=== PATIENT | female | born 1985 | race Two or more races ===

== ENCOUNTER 2016-11-21 07:13 | Inpatient (IN) ==
[2016-11-21] MEDS ORDERED: CITRIC ACID/SODIUM CITRATE 30 ML UDCUP PO ONE (07:39)
[2016-11-21] MEDS ORDERED: LACTATED RINGERS 1,000 ML IV ONE (07:39)
[2016-11-21] MEDS ORDERED: FAMOTIDINE 20 MG/2 ML VIAL IV ONE (07:39)
--- NOTE | 2016-11-21 07:42 | History and Physical Update ---
History and Physical Update - History and Physical H&P was reviewed, the patient examined and there: are no changes in the patients condition since last H&P was completed. - Dictation Physical: refer to scanned H&P - Physical Exam Mental Status: alert and oriented Heart: regular rate and rhythm Lung: clear to auscultation Abdomen: within normal limits Vitals: within normal limits (39 wks for primary LTCS, low-lying placenta. No other complications. )
[2016-11-21 07:53] LABS: Basophils % 0.3 % (0.0-0.8); Eosinophils # 0.1 10*3/uL (0.0-0.87); Eosinophils % 0.9 % (0.00-10.9); Hematocrit 33.8 VOL% (35.7-47.0); Immature Granulocytes % 0.6 %; Immature Granulocytes Absolute 0.05 #; Lymphocytes # 2.1 10*3/uL (1.4-4.0); Lymphocytes % 22.8 % (21.3-54.2); Mean Corpuscular HGB Conc 32.5 GM/DL (32-36); Mean Corpuscular Hemoglobin 26 PG (27-34); Mean Corpuscular Volume 78.2 FL (87-102); Mean Platelet Volume 11.2 FL (9.6-12.0); Monocytes # 0.6 10*3/uL (0.11-0.8); Monocytes % 7.1 % (1.7-12.7); Neutrophils # 6.2 10*3/uL (1.4-7.4); Neutrophils % 68.3 % (38.7-73.9); Platelet Count 279 T/CUMM (130-400); Red Blood Count 4.32 MC/CUMM (3.8-5.5); Red Cell Distribution Width 16.2 % (9.3-17.3)
[2016-11-21 08:27] LABS: Alanine Aminotransferase 20 U/L (13-56); Albumin 2.6 G/DL (3.4-5.0); Alkaline Phosphatase 353 U/L (45-117); Aspartate Amino Transferase 41 U/L (0-37); Bilirubin,Total < 0.39 MG/DL (0.2-1.0); Blood Urea Nitrogen 9 MG/DL (7-18); Calcium 8.5 MG/DL (8.5-10.1); Total Protein 6.5 G/DL (6.4-8.3)
[2016-11-21 08:28] LABS: Glucose 83 MG/DL (74-106); Osmolality,Calculated 270.8 MOS/KG (273-304); Potassium 3.8 MMOL/L (3.5-5.1); Sodium 137 MMOL/L (136-145)
[2016-11-21] MEDS: LACTATED RINGERS 1,000 ML IV SCH ×2 (09:00→21:00)
[2016-11-21] MEDS ORDERED: OXYTOCIN/LR 20 UNIT/1,000 ML BAG IV ONE ×2 (09:40→11:19)
[2016-11-21] MEDS ORDERED: ONDANSETRON 4 MG/2 ML VIAL ONE (10:08)
[2016-11-21 11:17] LABS: Apearance,Urine CLEAR (Clear); Bilirubin,Urine Negative (Negative); Blood, Urine Negative (Negative); Glucose,Urine (UA) Negative (Negative); Ketones,Urine 5 mg/dL (Negative); Nitrite,Urine Negative (Negative); Protein,Urine Negative; RBC,Urine 1 /HPF (0-4); Urine Color Colorless (Yellow); Urine Specific Gravity 1.003 (1.001-1.035); Urine Urobilinogen < 2.0 EU/DL (0.2-1.0); WBC,Urine <1 /HPF (0-6)
[2016-11-21] MEDS ORDERED: ONDANSETRON 4 MG/2 ML VIAL IV PRN (11:19)
[2016-11-21] MEDS ORDERED: RHO(D) IMMUNE GLOBULIN 300 MCG SYRINGE IM ONE (11:19)
[2016-11-21] MEDS ORDERED: ACETAMINOPHEN 325 MG TABLET PO PRN (11:19)
--- NOTE | 2016-11-21 11:23 | Operative Note ---
Date of procedure: 11/21/16 Pre-op diagnosis: 1.39wks; 2. low-lying placenta Post-op diagnosis: same Procedure: Primary low transverse section After informed consent was obtained the patient was taken to the labor and delivery OR where she was placed in supine position with left lateral tilt after administration of the subarachnoid block by members of the anesthesia department. The patient was then sterilely prepped and draped in the usual customary fashion. A Calixto catheter was placed to bedside drainage. After assuring adequacy of the subarachnoid block a low transverse skin incision was made. Incision was carried through the subcutaneous tissue and Gloria's fascia to the anterior rectus fascia. Rectus muscles are bifurcated in the midline. Peritoneum was carefully entered. A bladder flap was created. The bladder blade was place in the bladder flap. A low transverse myotomy incision was then performed. Uterine cavity was entered with careful dissection. The was found in the cephalic presentation and delivered by the usual cephalic delivery technique without difficulty. The baby was bulb suctioned on the operative field. The cord was doubly clamped and cut. The was handed to personnel in attendance. Cord blood was collected. The placenta was manually extracted and sent to pathology for evaluation. The uterus is brought out of the abdominal cavity onto the abdominal wall. Uterine cavity was gently curetted with a moistened lap sponge. The cervix was noted to be dilated. Myotomy incision was repaired with a running interlocking stitch of 0 chromic suture from left to right and from right to left. After assuring adequate myotomy closure the adnexa were inspected and found to be without evidence pathology. The abdominal gutters were irrigated with normal saline. Uterus was carefully replaced into the abdominal cavity. The myometrium incision was again inspected. It was found to be hemostatic. Peritoneum was closed with a running stitch of 3-0 Vicryl. Rectus muscles were noted be hemostatic. The fascia was closed in running fashion from left right and from right to left with 0 Vicryl suture. The sutures tied securely at the midline. Adequate fascial closure was assured. Gloria's fascia was reapproximated with a running stitch of 3-0 Vicryl. Skin edges were reapproximated with surgical surgical steel shyam. The wound was sterilely cleansed and dressed in the usual and customary fashion. Patient tolerated the procedure well and was transferred to recovery in stable condition. Anesthesia: spinal Surgeon / Physician: Lindy Fox Estimated blood loss: other (500cc) Specimens: other (placenta to path; cord blood to lab) Condition: stable Disposition: no change Results - Labs CBC & BMP: 11/21/16 07:46 11/21/16 07:46 Discharge Plan - Discharge Medications No Action Vit No.124/Iron/Folic [ Vitamin Tablet] 1 tablet PO DAILY MDD one tab - Follow Up or Referral - Forms/Instructions
[2016-11-21] MEDS ORDERED: LACTATED RINGERS 1,000 ML IV SCH (11:30)
[2016-11-21] MEDS ORDERED: ePHEDrine 50 MG/ML AMP ONE (11:34)
[2016-11-21] MEDS ORDERED: MORPHINE 10 MG/10 ML VIAL ONE (11:34)
[2016-11-21] MEDS ORDERED: diphenhydrAMINE 50 MG/1 ML VIAL ONE (13:18)
[2016-11-21] MEDS ORDERED: diphenhydrAMINE 50 MG/1 ML VIAL IV ONE (13:21)
--- NOTE | 2016-11-21 16:48 | Anesthesia Post-Op ---
Anesthesia Post OP - Post Ansesthetic Evaluation Patient seen in post op: Yes Resp: within normal limits CV: within normal limits Mental: within normal limits Temp: within normal limits [id number]-[id number]: within normal limits Nausea and Vomiting: within normal limits Pain: within normal limits
[2016-11-21] MEDS ORDERED: diphenhydrAMINE 50 MG/1 ML VIAL IV SCH (18:00)
[2016-11-21] MEDS: IBUPROFEN 800 MG TABLET PO PRN (21:49)
[2016-11-21] MEDS: oxyCODONE/ACETAMINOPHEN 5-325 MG TABLET PO PRN (21:50)
[2016-11-21] MEDS: DOCUSATE SODIUM 100 MG CAPSULE PO SCH (22:43)
[2016-11-22 07:11] LABS: Basophils % 0.2 % (0.0-0.8); Eosinophils # 0.2 10*3/uL (0.0-0.87); Eosinophils % 2.2 % (0.00-10.9); Hematocrit 24.9 VOL% (35.7-47.0); Immature Granulocytes % 0.5 %; Immature Granulocytes Absolute 0.05 #; Lymphocytes # 1.5 10*3/uL (1.4-4.0); Lymphocytes % 14.4 % (21.3-54.2); Mean Corpuscular HGB Conc 32.5 GM/DL (32-36); Mean Corpuscular Hemoglobin 26 PG (27-34); Mean Corpuscular Volume 79.6 FL (87-102); Mean Platelet Volume 10.5 FL (9.6-12.0); Monocytes # 0.7 10*3/uL (0.11-0.8); Neutrophils # 8.1 10*3/uL (1.4-7.4); Neutrophils % 75.7 % (38.7-73.9); Red Cell Distribution Width 16.7 % (9.3-17.3); White Blood Count 10.6 T/CUMM (4-12)
[2016-11-22 07:22] LABS: Hemoglobin 8.1 GM/DL (12.0-16.0); Platelet Count 221 T/CUMM (130-400); Red Blood Count 3.13 MC/CUMM (3.8-5.5)
[2016-11-22 07:28] LABS: Giant Platelets Few; Hypochromasia 1+; Platelet Estimate Adequate
[2016-11-22] MEDS: FERROUS SULFATE 325 MG TABLET PO SCH ×2 (09:31→20:09)
[2016-11-22] MEDS: IBUPROFEN 800 MG TABLET PO PRN ×2 (09:31→16:57)
[2016-11-22] MEDS: MULTIVITAMIN (PRENATAL) TABLET PO SCH (09:31)
[2016-11-22] MEDS: DOCUSATE SODIUM 100 MG CAPSULE PO SCH ×2 (09:31→20:09)
[2016-11-22 09:37] LABS: Hematocrit 25.8 VOL% (35.7-47.0); Hemoglobin 8.4 GM/DL (12.0-16.0)
[2016-11-22] MEDS: oxyCODONE/ACETAMINOPHEN 5-325 MG TABLET PO PRN (10:43)
--- NOTE | 2016-11-22 11:23 | Pathology Report from [facility] ---
[facility] ACCESSION # : [id number] PATIENT NAME : Mary Rose ORDERING DR : MEAGAN CARCAMO, CLINICAL HX: IUP @ 39+ week - Low lying placenta POST-OP DX: Same SPECIMEN INFO: Placenta GROSS DESCRIPTION: Received fresh labeled with the patients name and consists of a 415 gram placenta which measures 19.5 x 13.5 x 1.9 cm with an attached accessory lobe present measuring 11.0 x 8.5 x 1.5 cm. membranes are pink- cobb and translucent. The umbilical cord measures 27.0 cm, contains three vessels and is centrally inserted. The surface is blue-rios and intact. The maternal surface displays hemorrhagic, intact red-rios cotyledons with no abnormalities appreciated upon sectioning. Sections submitted: A membranes and cord, B and maternal surfaces. DIAGNOSIS FOR MARY ROSE: Three vessel umbilical cord.Unremarkable placental membranes.Placenta with accessory lobe and unremarkable third placental chorionic villi with focal subchorionic fibrin deposition. COLLECTED DATE: 11/21/2016 [facility] REPORT DATE: 11/22/2016 ELECTRONICALLY SIGNED BY: Prince Burciaga M.D. 11/22/2016 - 9:59:48 GHULAM
[2016-11-22] MEDS: MAGNESIUM HYDROXIDE SUSP 30 ML UDCUP PO PRN (16:57)
[2016-11-22] MEDS: SIMETHICONE CHEW 80 MG TABLET PO PRN (16:57)
[2016-11-22] MEDS: ACETAMINOPHEN/CODEINE 300-30 MG TABLET PO PRN (20:09)
[2016-11-22 20:27] LABS: Alanine Aminotransferase 12 U/L (13-56); Alkaline Phosphatase 229 U/L (45-117); Aspartate Amino Transferase 32 U/L (0-37); Bilirubin,Total < 0.39 MG/DL (0.2-1.0); Blood Urea Nitrogen 7 MG/DL (7-18); Calcium 8.1 MG/DL (8.5-10.1); Glucose 113 MG/DL (74-106); Potassium 3.9 MMOL/L (3.5-5.1); Sodium 143 MMOL/L (136-145); Total Protein 5.2 G/DL (6.4-8.3)
[2016-11-23] MEDS: IBUPROFEN 800 MG TABLET PO PRN ×3 (00:29→19:49)
[2016-11-23] MEDS: ACETAMINOPHEN/CODEINE 300-30 MG TABLET PO PRN ×5 (00:30→23:56)
[2016-11-23] MEDS: MAGNESIUM HYDROXIDE SUSP 30 ML UDCUP PO PRN (08:40)
[2016-11-23] MEDS: MULTIVITAMIN (PRENATAL) TABLET PO SCH (08:40)
[2016-11-23] MEDS: DOCUSATE SODIUM 100 MG CAPSULE PO SCH ×2 (08:40→20:00)
[2016-11-23] MEDS: FERROUS SULFATE 325 MG TABLET PO SCH ×2 (08:40→20:00)
[2016-11-23] MEDS: SIMETHICONE CHEW 80 MG TABLET PO PRN (23:56)
[2016-11-24 07:26] VITALS: BP 93/62
--- NOTE | 2016-11-24 07:26 | OB/GYN Progress Note ---
WINDOWS SYSTEMS ADMINISTRATOR - PN: Subj Interval history: 11/22/16: POD #1 Pt with presyncopal episode when stood up this morning. Nurse was with pt and she did not fall. VSSAF. Checked H/H and was stable. Will observe closely and manage as indicated. Exam WINDOWS SYSTEMS ADMINISTRATOR - Constitutional Vitals: Vital Signs Temp Pulse Resp BP Pulse Ox 11/24/16 05:00 18 11/24/16 04:00 97.9 F 75 18 90/48 99 11/24/16 00:00 97.7 F 85 18 93/65 99 11/23/16 20:00 98.2 F 80 18 95/56 99 11/23/16 15:43 97.9 F 98 H 18 85/51 98 11/23/16 11:14 97 F L 79 18 81/52 98 11/23/16 07:45 97.2 F L 76 16 88/55 97 Results - Labs CBC & BMP: 11/22/16 09:24 11/22/16 19:51
--- NOTE | 2016-11-24 07:32 | Discharge Summary ---
Hospital Course - Hospital Course Hospital Course: Pt underwent primary C/S with low-lying placenta at 39 wks gestation. Her course was complicated by presyncopal episodes that have resolved by POD#2. Pt ready for dismissal. Hemodynamically stable. Diagnosis - Discharge Diagnosis (1) S/P repeat low transverse Status: Acute Specialty Discharge - Follow Up or Referrals Follow up with: Lindy Fox DO [Primary Care Provider] - Discharge Plan - Discharge Data Disposition: Disch To Home/Self Care Condition at Discharge: Stable Discharge Diet: regular diet Activity: other (pelvic rest x 6 wks) Hygiene: may shower Weight Bearing at Discharge: full weight bearing Driving: not until seen by doctor Contact your physician if you experience:: fever over 101, Difficulty voiding, Redness or swelling, Nausea/Vomiting, Shortness of breath, Bleeding, pain uncontrolled by pain medications - Discharge Medications New Acetamin/Codeine 300-30 Tab [Tylenol/Codeine #3] 2 tablet PO Q4H PRN #30 tablet PRN Reason: Pain Mild (1-3) Ibuprofen Tab [Motrin Tab] 800 mg PO Q8H PRN #30 tablet PRN Reason: Pain Severe (8-10) No Action Vit No.124/Iron/Folic [ Vitamin Tablet] 1 tablet PO DAILY MDD one tab - Follow Up or Referral Follow Up: Lindy Fox DO [Primary Care Provider] - 1 Week - Forms/Instructions Instructions: Section (DC), Depression (GEN), Perineal Care (DC), Bleeding (DC) Exam - Constitutional Vitals: Period Temp Pulse Resp BP Sys/Null Pulse Ox Last 24 Hr 97 F-98.2 F 70-98 16-18 81-95/48-65 97-99 General appearance: normal weight, no acute distress - Head Head exam: Present: normal inspection, normocephalic - Eye Eye exam: Present: EOMI - Respiratory Respiratory exam: Present: clear to auscultation bilaterally - Cardiovascular Cardiovascular exam: Present: regular rate and rhythm - GI/Abdominal GI/Abdominal exam: Present: soft (fundus firm, nontender. Incision intact without E/I/D) - Extremities Exam Extremities exam: Present: normal inspection - Neurological Exam Neurological exam: Present: alert, oriented X3 - Psychiatric Psychiatric exam: Present: normal affect, normal mood - Skin Skin exam: Present: normal color, warm DS: Provider Date of admission: 11/21/16 07:34 Primary care physician: Lindy Fox DO Attending physician on admission: Lindy Fox DO Consults: 11/21/16 07:34 Consult to Anesthesiology [CONS] Routine Consulting Provider: Reason for Anesthesiology: Pre-op Clearance 11/21/16 11:19 Consult to Body Trimmer Upholsterer [CONS] Routine Consult Body Trimmer Upholsterer: Breast Feeding Discharging clinician: Lindy Fox DO Expected date of discharge: 11/24/16
[2016-11-24] MEDS: ACETAMINOPHEN/CODEINE 300-30 MG TABLET PO PRN (08:02)
[2016-11-24] MEDS: DOCUSATE SODIUM 100 MG CAPSULE PO SCH (08:02)
[2016-11-24] MEDS: IBUPROFEN 800 MG TABLET PO PRN (08:02)
[2016-11-24] MEDS: FERROUS SULFATE 325 MG TABLET PO SCH (08:02)
[2016-11-24] MEDS: MULTIVITAMIN (PRENATAL) TABLET PO SCH (08:02)
[2016-11-24] MEDS ORDERED: MEASLES/MUMPS/RUBELLA VACCINE 0.5 ML VIAL SUBCUT ONE (09:30)
== END 2016-11-24 12:10 | disposition home or self-care (01) | DRG 766 ==
LOC: N.LDOUT 07:13 → N.LD 07:15 → N.OB 14:30
PROVIDERS: ADMIT Obstetrics & Gynecology; ATTEND Obstetrics & Gynecology
PROC: LDCSECT (ICD-10-PCS; 2016-11-21 10:30)

== ENCOUNTER 2022-04-15 06:48 | Inpatient (IN) ==
[2022-04-15] MEDS ORDERED: CARBOPROST TROMETHAMINE 250 MCG/ML AMP IM PRN (07:04)
[2022-04-15] MEDS ORDERED: TRANEXAMIC ACID 1,000 MG in SODIUM CHLORIDE 0.9% 100 ML IV PRN (07:04)
[2022-04-15] MEDS ORDERED: OXYTOCIN/LR 20 UNIT/1,000 ML BAG IV ONE ×4 (07:04→10:25)
[2022-04-15] MEDS ORDERED: miSOPROStoL 200 MCG TABLET RECTAL PRN (07:04)
[2022-04-15] MEDS ORDERED: ceFAZolin 2,000 MG/50 ML DUPLEX IV ONE (07:04)
[2022-04-15] MEDS ORDERED: CITRIC ACID/SODIUM CITRATE 30 ML UDCUP PO ONE (07:04)
[2022-04-15] MEDS ORDERED: FAMOTIDINE 20 MG/2 ML VIAL IV ONE (07:04)
[2022-04-15] MEDS ORDERED: METHYLERGONOVINE 0.2 MG/1 ML AMP IM PRN (07:04)
[2022-04-15] MEDS ORDERED: miSOPROStoL 200 MCG TABLET ONE (07:37)
[2022-04-15] MEDS ORDERED: TRANEXAMIC ACID 1,000 MG/10 ML VIAL ONE (07:38)
[2022-04-15] MEDS ORDERED: METHYLERGONOVINE 0.2 MG/1 ML AMP ONE (07:38)
[2022-04-15] MEDS ORDERED: SODIUM CHLORIDE 0.9% 0 ML IV ONE (07:38)
[2022-04-15] MEDS ORDERED: CARBOPROST TROMETHAMINE 250 MCG/ML AMP IM ONE (07:38)
[2022-04-15 07:49] LABS: Basophils % 0.2 % (0.0-0.8); Eosinophils # 0.2 10*3/uL (0.0-0.87); Eosinophils % 1.8 % (0.00-10.9); Hematocrit 38.1 VOL% (35.7-47.0); Hemoglobin 12.2 GM/DL (12.0-16.0); Immature Granulocytes % 0.3 %; Immature Granulocytes Absolute 0.03 #; Lymphocytes # 1.5 10*3/uL (1.4-4.0); Lymphocytes % 14.6 % (21.3-54.2); Mean Corpuscular Volume 82.3 FL (87-102); Mean Platelet Volume 10.1 FL (9.6-12.0); Monocytes # 0.8 10*3/uL (0.11-0.8); Monocytes % 7.4 % (1.7-12.7); Neutrophils % 75.7 % (38.7-73.9); Platelet Count 246 T/CUMM (130-400); Red Blood Count 4.63 MC/CUMM (3.8-5.5); Red Cell Distribution Width 16.7 % (9.3-17.3); White Blood Count 10.4 T/CUMM (4-12)
[2022-04-15] MEDS: LACTATED RINGERS 1,000 ML IV SCH (07:58)
[2022-04-15] MEDS ORDERED: ONDANSETRON 4 MG/2 ML VIAL ONE (08:34)
[2022-04-15] MEDS ORDERED: buprenorphine HCL 0.3 MG/ML VIAL ONE (08:35)
[2022-04-15] MEDS ORDERED: PHENYLEPHRINE 1 MG/10 ML SYRINGE IV ONE ×4 (09:28→10:02)
[2022-04-15] MEDS ORDERED: SODIUM CHLORIDE 0.9% 1,000 ML IV ONE (09:28)
[2022-04-15 09:50] LABS: Cord Arterial Blood HCO3 22.1 MMOL/L
[2022-04-15] MEDS ORDERED: KETOROLAC 30 MG/1 ML VIAL ONE (09:50)
[2022-04-15 09:53] LABS: Cord Venous Blood HCO3 22.9 MMOL/L; Cord Venous Blood PCO2 43.3 MMHG; Cord Venous Blood PO2 29.9
[2022-04-15] MEDS ORDERED: ACETAMINOPHEN INJ 1,000 MG/100 ML VIAL IV ONE (10:02)
[2022-04-15] MEDS ORDERED: SIMETHICONE CHEW 80 MG TABLET PO PRN (10:23)
[2022-04-15] MEDS ORDERED: ONDANSETRON 4 MG/2 ML VIAL IV PRN (10:23)
[2022-04-15] MEDS ORDERED: ACETAMINOPHEN 325 MG TABLET PO PRN (10:23)
[2022-04-15] MEDS ORDERED: RHO(D) IMMUNE GLOBULIN 300 MCG SYRINGE IM ONE (10:23)
[2022-04-15] MEDS ORDERED: MAGNESIUM HYDROXIDE SUSP 30 ML UDCUP PO PRN (10:23)
[2022-04-15] MEDS ORDERED: LACTATED RINGERS 1,000 ML IV SCH (10:30)
[2022-04-15] MEDS: IBUPROFEN 800 MG TABLET PO PRN (14:35)
[2022-04-15] MEDS ORDERED: diphenhydrAMINE CAP 25 MG CAPSULE PO PRN (14:58)
[2022-04-15] MEDS: ACETAMINOPHEN 500 MG TABLET PO SCH ×2 (17:07→22:58)
[2022-04-15] MEDS: KETOROLAC 30 MG/1 ML VIAL IV SCH ×2 (17:09→23:06)
[2022-04-15] MEDS ORDERED: PROMETHAZINE 25 MG/1 ML VIAL IM PRN (17:16)
[2022-04-16] MEDS: LACTATED RINGERS 1,000 ML IV SCH ×2 (04:00→09:23)
[2022-04-16] MEDS: ACETAMINOPHEN 500 MG TABLET PO SCH (04:50)
[2022-04-16] MEDS: KETOROLAC 30 MG/1 ML VIAL IV SCH (04:57)
[2022-04-16 05:15] LABS: Basophils % 0.4 % (0.0-0.8); Eosinophils # 0.1 10*3/uL (0.0-0.87); Eosinophils % 1.8 % (0.00-10.9); Hematocrit 30.8 VOL% (35.7-47.0); Hemoglobin 9.6 GM/DL (12.0-16.0); Immature Granulocytes % 0.6 %; Immature Granulocytes Absolute 0.05 #; Lymphocytes # 1.8 10*3/uL (1.4-4.0); Lymphocytes % 22.9 % (21.3-54.2); Mean Corpuscular HGB Conc 31.2 GM/DL (32-36); Mean Corpuscular Volume 83.9 FL (87-102); Mean Platelet Volume 10.2 FL (9.6-12.0); Monocytes # 0.5 10*3/uL (0.11-0.8); Neutrophils % 68.3 % (38.7-73.9); Platelet Count 194 T/CUMM (130-400); Red Blood Count 3.67 MC/CUMM (3.8-5.5); Red Cell Distribution Width 16.7 % (9.3-17.3); White Blood Count 7.9 T/CUMM (4-12)
[2022-04-16 05:38] LABS: Anisocytosis 2+; Platelet Estimate Normal
[2022-04-16] MEDS ORDERED: INFLUENZA VIRUS VACCINE 0.5 ML SYRINGE IM ONE (07:37)
[2022-04-16] MEDS: MULTIVITAMIN (PRENATAL) TABLET PO SCH (09:23)
[2022-04-16] MEDS: IBUPROFEN 800 MG TABLET PO PRN (15:12)
[2022-04-17] MEDS: IBUPROFEN 800 MG TABLET PO PRN (04:00)
[2022-04-17] MEDS: MULTIVITAMIN (PRENATAL) TABLET PO SCH (08:09)
[2022-04-17 08:31] VITALS: BP 95/64
== END 2022-04-17 11:15 | disposition home or self-care (01) | DRG 788 ==
LOC: N.LD 06:48 → N.OB 14:16
PROVIDERS: ADMIT Obstetrics & Gynecology; ATTEND Obstetrics & Gynecology
PROC: LDCSECT (ICD-10-PCS; 2022-04-15 09:00)